=== PATIENT | male | born 1960 | race Hispanic/Latino ===

== ENCOUNTER 2020-02-22 | Emergency (ER) | payer OTHER ==
--- OUTSIDE RECORDS SUMMARY | 2020-02-22 16:45 | XMS REPORT | Continuity of Care Document ---
:1960 Author Organization [facility] Care Team Providers Name Role Phone [facility] Unavailable Un available Problems Problem Status Onset Classification Date Comments Sourc e Date Reported OTHER TEAR OF Active [facility] [place] [facility] [place] MENISCUS, CURRENT I OTH TEAR OF Active [facility] [place] [place] MENISCUS, CURRENT INJ UNILATERAL Active [facility] [place] OSTEOARTHRITIS , UNSPE Medications No Data Provided for This Section Allergies, Adverse Reactions, Alerts No Known Medication Allergies Immunizations No Data Provided for This Section Results No Data Provided for This Section Pathology Reports No Data Provided for This Section Diagnostic Reports Report Value Date Source Chest 2 views DX EXAM: 08/21/2015 [facility] n 2 view(s) of the chest. INDICATION: Preoperative exam. COMPARISON: Chest x-ray: None. FINDINGS: Support apparatus: None. Cardiac silhouette: Enlarged. Zahra: Unremarkable. Lobar consolidation: Negative. Pleural effusion: Negative. Pneumothorax: Negative. Other: Negative. Bones: Unremarkable. Other: None. IMPRESSION: 1. Enlarged cardiac silhouette without pulmonary edema. Consultation Notes No Data Provided for This Section Discharge Summaries No Data Provided for This Section History and Physicals No Data Provided for This Section Vital Signs No Data Provided for This Section Encounters Location Location Encounter Encounter Reason Attending ADM MS Stat Source Details Type Number For Provider Date Date Visit Outpatient [id number] XRAY VISIT 08/20 Act arjun [place] Procedures No Data Provided for This Section Assessment and Plan No Data Provided for This Section Plan of Care No Data Provided for This Section Social History No Data Provided for This Section Family History No Data Provided for This Section Advance Directives No Data Provided for This Section Functional Status No Data Provided for This Section
--- NOTE | 2020-02-22 17:18 | ER ---
Nurse's Notes [facility] Name: Servando Patel Age: 60 yrs Sex: Male : 1960 Arrival Date: 02/22/2020 Time: 16:47 Bed 5 Private MD: Diagnosis: First degree hemorrhoids Presentation: 02/21 16:59 Chief complaint: Patient states: "I had a colonoscopy on the and I have been jd3 having rectal pain since then, especially when having a bowel movement. I called the doctor that did it and they prescribed a medication called Proctosol and it helped at first, but it is not helping anymore.". Coronavirus screen: At this time, the client does not indicate any symptoms associated with coronavirus-19. Ebola Screen: Patient negative for fever greater than or equal to 101.5 degrees Fahrenheit, and additional compatible Ebola Virus Disease symptoms. Initial Sepsis Screen: Does the patient meet any 2 criteria? No. Patient's initial sepsis screen is negative. Does the patient have a suspected source of infection? No. Patient's initial sepsis screen is negative. Risk Assessment: Do you want to hurt yourself or someone else? Patient reports no desire to harm self or others. Onset of symptoms was February 12, 2020. 16:59 Method Of Arrival: Ambulatory j 16:59 Acuity: VERONIKA 3 jd3 Historical: - Allergies: 17:02 Codeine; jd3 - Home Meds: 17:02 None [Active]; jd3 - PMHx: 17:02 None; jd3 - PSHx: 17:02 Appendectomy; jaw; left knee; jd3 - Immunization history:: Adult Immunizations up to date. - Social history:: Smoking status: Patient denies any tobacco usage or history of. Patient/guardian denies using alcohol, street drugs, The patient lives with family. - Family history:: not pertinent. - Hospitalizations: : No recent hospitalization is reported. Screenin:10 Abuse screen: Denies threats or abuse. Denies injuries from another. Nutritional jl7 screening: No deficits noted. Tuberculosis screening: No symptoms or risk factors identified. Fall Risk None identified. Assessment: 17:10 General: Appears in no apparent distress. uncomfortable, Behavior is calm, cooperative, jl7 appropriate for age. Pain: Complains of pain in rectum Pain currently is 8 out of 10 on a pain scale. Neuro: Level of Consciousness is awake, alert, obeys commands, Oriented to person, place, time, situation. Cardiovascular: Patient's skin is warm and dry. Respiratory: Airway is patent Respiratory effort is even, unlabored, Respiratory pattern is regular, symmetrical. GI: Abdomen is round non-distended, obese, Stools are reported to be normal. Derm: Skin is pink, warm \\T\\ dry. Vital Signs: 17:02 BP 125 / 78; Pulse 70; Resp 17 S; Temp 97.0(TE); Pulse Ox 97% on R/A; Weight 108.86 kg j (R); Height 5 ft. 8 in. (172.72 cm) (R); Pain 8/10; 17:02 Body Mass Index 36.49 (108.86 kg, 172.72 cm) [facility] ED Course: 16:47 Patient arrived in ED. ds1 16:51 Kathrine Baez MD is Attending Physician. ma2 17:01 Triage completed. jd3 17:02 Arm band placed on. jd3 17:04 Devin Lima, LAURA is Primary Nurse. jl7 17:10 Patient has correct armband on for positive identification. Placed in gown. Bed in low jl7 position. Call light in reach. Side rails up X 1. Pulse ox on. NIBP on. 17:11 Served as a patient flow coordinator during rectal exam. jl7 17:16 Patient did not have IV access during this emergency room visit. jl7 Administered Medications: No medications were administered Outcome: 17:18 Discharge ordered by . ma2 17:24 Discharged to home ambulatory. jl7 17:24 Condition: stable 17:24 Discharge instructions given to patient, Instructed on discharge instructions, follow up and referral plans. medication usage, Demonstrated understanding of instructions, follow-up care, medications, Prescriptions given X 1. 17:24 Patient left the ED. jl7 Signatures: Polly Roach ds1 Devin Lima, Srinivas Huff RN, RN RN jKathrine Nascimento MD MD ma2
--- NOTE | 2020-02-22 17:18 | EDPHYS ---
Physician Documentation [facility] Name: Servando Patel Age: 60 yrs Sex: Male : 1960 Arrival Date: 02/22/2020 Time: 16:47 Bed 5 Private MD: ED Physician Kathrine Baez HPI: 02/21 17:15 This 60 yrs old Male presents to ER via Ambulatory with complaints of Rectal ma2 Pain. 17:15 The patient presents to the emergency department with pain in the rectal area. Onset: ma2 The symptoms/episode began/occurred gradually, 2 day(s) ago. Context: the patient has no known special context relating to the rectal area complaint(s). Associate signs and symptoms: Pertinent negatives: diarrhea, fever, lower GI bleeding, vomiting. The patient has not experienced similar symptoms in the past. rectal pain . Historical: - Allergies: 17:02 Codeine; jd3 - Home Meds: 17:02 None [Active]; jd3 - PMHx: 17:02 None; jd3 - PSHx: 17:02 Appendectomy; jaw; left knee; jd3 - Immunization history:: Adult Immunizations up to date. - Social history:: Smoking status: Patient denies any tobacco usage or history of. Patient/guardian denies using alcohol, street drugs, The patient lives with family. - Family history:: not pertinent. - Hospitalizations: : No recent hospitalization is reported. ROS: 17:15 Constitutional: Negative for fever, chills, and weight loss. ma2 17:15 All other systems are negative. Exam: 17:15 Constitutional: This is a well developed, well nourished patient who is awake, alert, ma2 and in no acute distress. Chest/axilla: Normal chest wall appearance and motion. Nontender with no deformity. No lesions are appreciated. Cardiovascular: Regular rate and rhythm with a normal S1 and S2. No gallops, murmurs, or rubs. Normal PMI, no JVD. No pulse deficits. Respiratory: Lungs have equal breath sounds bilaterally, clear to auscultation and percussion. No rales, rhonchi or wheezes noted. No increased work of breathing, no retractions or nasal flaring. Abdomen/GI: rectal exam shoes hemorroid at 3 pm location small 1x1 mm and tender, n obleeding, otherwise no rectal pathology seen,, Soft, non-tender, with normal bowel sounds. No distension or tympany. No guarding or rebound. No evidence of tenderness throughout. Male : Normal genitalia with no discharge or lesions. Skin: Warm, dry with normal turgor. Normal color with no rashes, no lesions, and no evidence of cellulitis. MS/ Extremity: Pulses equal, no cyanosis. Neurovascular intact. Full, normal range of motion. Neuro: Awake and alert, GCS 15, oriented to person, place, time, and situation. Cranial nerves II-XII grossly intact. Motor strength 5/5 in all extremities. Sensory grossly intact. Cerebellar exam normal. Normal gait. Vital Signs: 17:02 BP 125 / 78; Pulse 70; Resp 17 S; Temp 97.0(TE); Pulse Ox 97% on R/A; Weight 108.86 kg jd3 (R); Height 5 ft. 8 in. (172.72 cm) (R); Pain 8/10; 17:02 Body Mass Index 36.49 (108.86 kg, 172.72 cm) jd3 MDM: 16:51 Patient medically screened. ma2 17:15 Differential diagnosis: hemorrhoids, fissure, abscess, condyloma. Data reviewed: vital ma2 signs, nurses notes. Counseling: I had a detailed discussion with the patient and/or guardian regarding: the historical points, exam findings, and any diagnostic results supporting the discharge/admit diagnosis, the presence of at least one elevated blood pressure reading (>120/80) during this emergency department visit, the need for outpatient follow up. Response to treatment: There is no appreciated change of the patient's symptoms at this time. Administered Medications: No medications were administered Disposition: 02/22/20 17:18 Discharged to Home. Impression: First degree hemorrhoids. - Condition is Stable. - Discharge Instructions: Hemorrhoids, [id number]. - Prescriptions for Diclofenac Sodium 75 mg Oral Tablet Sustained Release - take 1 tablet by ORAL route 2 times per day; 30 tablet. - Medication Reconciliation Form, Thank You Letter, Antibiotic Education, Prescription Opioid Use form. - Follow up: Private Physician; When: Tomorrow; Reason: Continuance of care. Signatures: Devin Lima RN RN jl7 Srinivas Santiago RN RN jd3 Kathrine Baez MD MD ma2 Corrections: (The following items were deleted from the chart) 17:24 17:18 02/22/2020 17:18 Discharged to Home. Impression: First degree hemorrhoids. jl7 Condition is Stable. Forms are Medication Reconciliation Form, Thank You Letter, Antibiotic Education, Prescription Opioid Use. Follow up: Private Physician; When: Tomorrow; Reason: Continuance of care. ma2
== END 2020-02-22 17:24 | disposition home or self-care (01) ==
CPT/HCPCS: 99283

== ENCOUNTER 2020-03-04 01:52 | Emergency (ER) | payer OTHER ==
--- OUTSIDE RECORDS SUMMARY | 2020-03-04 01:54 | XMS REPORT | Continuity of Care Document ---
:1960 Author Organization [facility] [email or web address] Care Team Providers Name Role Phone [facility] [email or web address] Unavailable Un available Problems Problem Status Onset [...] Source Chest 2 views DX EXAM: 08/21/2015 [facility] n 2 view(s) of the chest. INDICATION: [...] Location Location Encounter Encounter Reason Attending ADM CA Stat Source Details Type Number For Provider Date Date Visit Outpatient [id number] XRAY VISIT 08/20 Act arjun [place] Procedures No Data Provided for This Section [...]
[2020-03-04] MEDS ORDERED: METHYLPREDNISOLONE 40 MG INJ ONE (02:48)
[2020-03-04] MEDS ORDERED: KETOROLAC 30 MG/ML INJ ONE (02:48)
[2020-03-04 03:01] LABS: Absolute Lymphocytes (CBC) 3.1 K/uL (0.7-4.9); Basophils % 1.2 % (0-1.3); Hematocrit 38.3 % (39.6-49.0); Lymphocytes % 33.3 % (15.3-44.8); MPV 8.4 fL (7.6-11.3)
[2020-03-04 03:13] LABS: ALT/SGPT 25 U/L (12-78); AST/SGOT 15 U/L (15-37); Alkaline Phosphatase 85 U/L (45-117); BUN Blood Urea Nitrogen 17 mg/dL (7-18); Bicarbonate 28 mmol/L (21-32); Bilirubin Direct < 0.1 mg/dL (0-0.2); Bilirubin Total 0.2 mg/dL (0.2-1.0); Glucose Level 128 mg/dL (74-106); Lipase 59 U/L (73-393); Protein, Total 7.5 g/dL (6.4-8.2); Sodium Level 142 mmol/L (136-145)
--- NOTE | 2020-03-04 04:01 | ER ---
Nurse's Notes [facility] Name: Servando Patel Age: 60 yrs Sex: Male : 1960 Arrival Date: 03/04/2020 Time: 01:54 Bed 14 Private MD: Diagnosis: Internal hemmorhoids Presentation: 03/04 02:11 Chief complaint: Patient states: I had a colonoscopy on Feb 11 and since then I have tl1 had rectal pain. It feels like something is protruding from his rectum. Coronavirus screen: Client denies travel out of the [place] in the last 14 days. At this time, the client does not indicate any symptoms associated with coronavirus-19. Ebola Screen: Patient negative for fever greater than or equal to 101.5 degrees Fahrenheit, and additional compatible Ebola Virus Disease symptoms Patient denies exposure to infectious person. Patient denies travel to an Ebola-affected area in the 21 days before illness onset. Initial Sepsis Screen: Does the patient meet any 2 criteria? No. Patient's initial sepsis screen is negative. Does the patient have a suspected source of infection? No. Patient's initial sepsis screen is negative. Risk Assessment: Do you want to hurt yourself or someone else? Patient reports no desire to harm self or others. Onset of symptoms was February 12, 2020. 02:11 Method Of Arrival: Ambulatory tl1 02:11 Acuity: VERONIKA 3 tl1 Historical: - Allergies: 02:25 Codeine; tl1 - Home Meds: 02:25 Hydrocortisone Acetate Rectal [Active]; tl1 - PSHx: 02:25 Colostomy; Appendectomy; jaw surgery; tl1 - Immunization history:: Adult Immunizations up to date. - Social history:: Smoking status: Patient denies any tobacco usage or history of. Screenin:02 Abuse screen: Denies threats or abuse. Nutritional screening: No deficits noted. jb4 Tuberculosis screening: No symptoms or risk factors identified. Fall Risk None identified. Assessment: 02:02 General: Appears in no apparent distress. uncomfortable, Behavior is calm, cooperative, jb4 appropriate for age. Pain: Complains of pain in Rectum Pain does not radiate. Pain currently is 6 out of 10 on a pain scale. Neuro: Level of Consciousness is awake, alert, obeys commands, Oriented to person, place, time, situation. Cardiovascular: Patient's skin is warm and dry. Respiratory: Airway is patent Respiratory effort is even, unlabored, Respiratory pattern is regular, symmetrical. GI: Reports rectal pain Patient currently denies abdominal pain, bloody stool, constipation, hemorrhoids, incontinence, nausea, rectal bleeding. : No signs and/or symptoms were reported regarding the genitourinary system. EENT: No signs and/or symptoms were reported regarding the EENT system. Derm: Skin is intact, Skin is pink, warm \T\ dry. Musculoskeletal: Circulation, motion, and sensation intact. Range of motion: intact in all extremities. 03:30 Reassessment: Patient appears in no apparent distress at this time. Patient and/or jb4 family updated on plan of care and expected duration. Pain level reassessed. Patient is alert, oriented x 3, equal unlabored respirations, skin warm/dry/pink. Patient denies pain at this time. Patient states feeling better. 04:18 Reassessment: Patient appears in no apparent distress at this time. Patient and/or jb4 family updated on plan of care and expected duration. Pain level reassessed. Patient is alert, oriented x 3, equal unlabored respirations, skin warm/dry/pink. Patient denies pain at this time. Patient states feeling better. Patient states symptoms have improved. Vital Signs: 02:11 BP 121 / 87; Pulse 71; Resp 16; Temp 98.1; Pulse Ox 97% ; Weight 108.86 kg; Height 5 tl1 ft. 9 in. (175.26 cm); Pain 0/10; 03:00 BP 110 / 68; Pulse 63; Resp 16; Pulse Ox 96% on R/A; jb4 03:30 BP 117 / 91; Pulse 70; Resp 16; Pulse Ox 97% on R/A; Pain 0/10; jb4 04:00 BP 138 / 82; Pulse 57; Resp 16; Pulse Ox 96% on R/A; jb4 02:11 Body Mass Index 35.44 (108.86 kg, 175.26 cm) tl1 ED Course: 01:54 Patient arrived in ED. ag3 02:02 Patient has correct armband on for positive identification. Placed in gown. Bed in low jb4 position. Call light in reach. Side rails up X 1. Pulse ox on. NIBP on. 02:22 Triage completed. tl1 02:24 David Gaitan MD is Attending Physician. tw4 02:25 Arm band placed on right wrist. tl1 02:29 Jonathan Goodman, RN is Primary Nurse. jb4 02:45 Initial lab(s) drawn, by de, sent to lab. Inserted saline lock: 18 gauge in right jb4 antecubital area, using aseptic technique. Blood collected. 03:24 CT Abd/Pelvis - IV Contrast Only In Process Unspecified. EDMS 04:00 No provider procedures requiring assistance completed. IV discontinued, intact, jb4 bleeding controlled, No redness/swelling at site. Pressure dressing applied. Administered Medications: 02:45 Drug: TORadol 30 mg Route: IVP; Site: right antecubital; jb4 03:30 Follow up: Response: No adverse reaction; Pain is decreased jb4 02:45 Drug: SOLU-Medrol 80 mg Route: IVP; Site: right antecubital; jb4 03:30 Follow up: Response: No adverse reaction jb4 Outcome: 04:01 Discharge ordered by . tw4 04:20 Discharged to home ambulatory. jb4 04:20 Condition: stable 04:20 Discharge instructions given to patient, Instructed on discharge instructions, follow up and referral plans. medication usage, Demonstrated understanding of instructions, follow-up care, medications, Prescriptions given X 4. 04:21 Patient left the ED. jb4 Signatures: Dispatcher [employer] EDSC Maribell Dozier RN RN tl1 Jonathan Goodman, RN RN jb4 David Gaitan MD MD tw4 Veronica Seymour 3 Corrections: (The following items were deleted from the chart) 03:33 03:00 BP 110 / 68; Pulse 63bpm; Resp 16bpm; Pulse Ox 96% RA; Pain 0/10; jb4 jb4
--- NOTE | 2020-03-04 04:02 | EDPHYS ---
Physician Documentation [facility] Name: Servando Patel Age: 60 yrs Sex: Male : 1960 Arrival Date: 03/04/2020 Time: 01:54 Bed 14 Private MD: RILEY Physician David Gaitan HPI: 03/04 03:13 This 60 yrs old Male presents to ER via Ambulatory with complaints of Rectal tw4 Pain. 03:13 The patient presents to the emergency department with pain in the rectal area. Context: tw4 the patient has no known special context relating to the rectal area complaint(s). Modifying factors: The symptoms are alleviated by nothing, The symptoms are aggravated by bowel movement, movement, sitting position. Associate signs and symptoms: 1 month(s) ago, and became worse today, The patient has no apparent associated signs or symptoms. Historical: - Allergies: 02:25 Codeine; tl1 - Home Meds: 02:25 Hydrocortisone Acetate Rectal [Active]; tl1 - PSHx: 02:25 Colostomy; Appendectomy; jaw surgery; tl1 - Immunization history:: Adult Immunizations up to date. - Social history:: Smoking status: Patient denies any tobacco usage or history of. ROS: 03:13 Constitutional: Negative for fever, chills, and weight loss, Eyes: Negative for injury, tw4 pain, redness, and discharge, Cardiovascular: Negative for chest pain, palpitations, and edema, Respiratory: Negative for shortness of breath, cough, wheezing, and pleuritic chest pain, Back: Negative for injury and pain, MS/Extremity: Negative for injury and deformity, Skin: Negative for injury, rash, and discoloration, Neuro: Negative for headache, weakness, numbness, tingling, and seizure. 03:13 Abdomen/GI: Positive for rectal pain, Negative for abdominal pain, nausea and vomiting, nausea, vomiting, and diarrhea, nausea, vomiting, diarrhea, abdominal cramps, abdominal distension, dysphagia. Exam: 03:13 Constitutional: This is a well developed, well nourished patient who is awake, alert, tw4 and in no acute distress. Head/Face: Normocephalic, atraumatic. Chest/axilla: Normal chest wall appearance and motion. Nontender with no deformity. No lesions are appreciated. Cardiovascular: Regular rate and rhythm with a normal S1 and S2. No gallops, murmurs, or rubs. Normal PMI, no JVD. No pulse deficits. Respiratory: Lungs have equal breath sounds bilaterally, clear to auscultation and percussion. No rales, rhonchi or wheezes noted. No increased work of breathing, no retractions or nasal flaring. Back: No spinal tenderness. No costovertebral tenderness. Full range of motion. Skin: Warm, dry with normal turgor. Normal color with no rashes, no lesions, and no evidence of cellulitis. MS/ Extremity: Pulses equal, no cyanosis. Neurovascular intact. Full, normal range of motion. Neuro: Awake and alert, GCS 15, oriented to person, place, time, and situation. Cranial nerves II-XII grossly intact. Motor strength 5/5 in all extremities. Sensory grossly intact. Cerebellar exam normal. Normal gait. 03:13 Abdomen/GI: Inspection: abdomen appears normal, Bowel sounds: normal, Palpation: abdomen is soft and non-tender, Rectal exam: swelling, that is mild, tenderness, that is mild. Vital Signs: 02:11 BP 121 / 87; Pulse 71; Resp 16; Temp 98.1; Pulse Ox 97% ; Weight 108.86 kg; Height 5 tl1 ft. 9 in. (175.26 cm); Pain 0/10; 03:00 BP 110 / 68; Pulse 63; Resp 16; Pulse Ox 96% on R/A; jb4 03:30 BP 117 / 91; Pulse 70; Resp 16; Pulse Ox 97% on R/A; Pain 0/10; jb4 04:00 BP 138 / 82; Pulse 57; Resp 16; Pulse Ox 96% on R/A; jb4 02:11 Body Mass Index 35.44 (108.86 kg, 175.26 cm) tl1 MDM: 02:24 Patient medically screened. tw4 05:35 Differential diagnosis: hemorrhoids. Data reviewed: vital signs, nurses notes. Data tw4 interpreted: Pulse oximetry: Interpretation: normal. Counseling: I had a detailed discussion with the patient and/or guardian regarding: the historical points, exam findings, and any diagnostic results supporting the discharge/admit diagnosis. Special discussion: I discussed with the patient/guardian in detail that at this point there is no indication for admission to the hospital. It is understood, however, that if the symptoms persist or worsen the patient needs to return immediately for re-evaluation. 03/04 02:24 Order name: Basic Metabolic Panel; Complete Time: 03:41 tw4 03/04 03:42 Interpretation: Normal except: GLUC 128; GFR 70; CL 110. tw4 03/04 02:24 Order name: CBC with Diff; Complete Time: 03:41 tw4 03/04 03:43 Interpretation: Normal except: RBC 4.00; HGB 13.0; HCT 38.3; EOSINOPHIL % 5.9. tw4 03/04 02:24 Order name: Hepatic Function; Complete Time: 03:41 tw4 03/04 03:42 Interpretation: Normal except: ALB 3.0; A/G 0.7; GLOB 4.5. tw4 03/04 02:24 Order name: Lipase; Complete Time: 03:41 tw4 03/04 03:42 Interpretation: Normal except: LIP 59. tw4 03/04 02:24 Order name: CT Abd/Pelvis - IV Contrast Only tw4 03/04 02:24 Order name: IV Saline Lock; Complete Time: 02:50 tw4 03/04 02:24 Order name: Labs collected and sent; Complete Time: 02:50 tw4 Administered Medications: 02:45 Drug: TORadol 30 mg Route: IVP; Site: right antecubital; jb4 03:30 Follow up: Response: No adverse reaction; Pain is decreased jb4 02:45 Drug: SOLU-Medrol 80 mg Route: IVP; Site: right antecubital; jb4 03:30 Follow up: Response: No adverse reaction [facility] Disposition: 03/04/20 04:01 Discharged to Home. Impression: Internal hemmorhoids. - Condition is Stable. - Discharge Instructions: Hemorrhoids. - Prescriptions for Anusol- HC 2.5 % Rectal Cream - Apply to affected area 1 application by TOPICAL route every 8 hours As needed; 30 gram. Colace 100 mg Oral Tablet - take 1 tablet by ORAL route every 12 hours; 14 tablet. Anusol- HC 25 mg Rectal Suppository - insert 1 suppository by RECTAL route every 12 hours As needed; 20 suppository. Medrol (Augie) 4 mg Oral Tablets, Dose Pack - take 1 tablet by ORAL route as directed - follow package instructions; 1 packet. - Medication Reconciliation Form, Thank You Letter, Antibiotic Education, Prescription Opioid Use form. - Follow up: Private Physician; When: Upon discharge from the Emergency Department; Reason: Recheck today's complaints, Continuance of care, Re-evaluation by your physician. - Problem is new. - Symptoms have improved. Signatures: Dispatcher [employer] EDMS Maribell Dozier RN RN tl1 Jonathan Goodman RN RN jb4 David Gaitan MD MD tw4 Corrections: (The following items were deleted from the chart) 03:43 03:42 Normal except: RBC 4.00; HGB 13.0; HCT 38.3. tw4 tw4 04:21 04:01 03/04/2020 04:01 Discharged to Home. Impression: Internal hemmorhoids. Condition jb4 is Stable. Forms are Medication Reconciliation Form, Thank You Letter, Antibiotic Education, Prescription Opioid Use. Follow up: Private Physician; When: Upon discharge from the Emergency Department; Reason: Recheck today's complaints, Continuance of care, Re-evaluation by your physician. Problem is new. Symptoms have improved. tw4
--- NOTE | 2020-03-04 09:55 | RAD REPORT ---
EXAM DESCRIPTION: RCT ABDOMEN PELVIS WITH IV CONTRAST CLINICAL HISTORY: Rectal pain TECHNIQUE: Contiguous axial images obtained through the abdomen and pelvis following the uneventful administration of IV contrast. Coronal and sagittal reformatted images were provided. This exam was performed according to our departmental dose-optimization program, which includes autom ated exposure control, adjustment of the mA and/or kV according to patient size and/or use of iterati ve reconstruction technique. COMPARISON: None available for comparison. FINDINGS: Lung bases: Clear Liver: The liver is enlarged and diffusely low in density compatible with steatosis. Gallbladder and biliary system: Prior cholecystectomy. Pancreas: Mild fatty replacement of the pancreatic parenchyma. Spleen: Unremarkable Adrenals: Unremarkable Kidneys: Normal renal cortical enhancement. No calculi. No hydronephrosis. Bowel: Moderate stool within the proximal to mid large bowel. No obstruction. No appreciable mucosal thickening. Appendix: Prior appendectomy. Urinary bladder: Unremarkable Reproductive: Unremarkable as visualized Lymph nodes: No pathologically enlarged lymph nodes. Peritoneum: No focal fluid collection. No free air. Vessels: Mild atherosclerotic disease. No abdominal aortic aneurysm. Abdominal wall: Tiny fat-containing umbilical hernia. Bones: Multilevel spondylosis. No acute fracture. IMPRESSION: 1. No acute abnormality identified within the abdomen and pelvis. 2. Other findings as above. Electronically signed by: Yonny Paredes MD 03/04/2020 3:45 AM [facility] [employer] Due to temporary technical issues with the PACS/Fluency reporting system, reports are being signed by the in house radiologist without review as a courtesy to ensure prompt reporting. The interpreting r adiologist is fully responsible for the content of the report.
[2020-03-07 17:39] VITALS: TEMP 98.1
[2020-03-07 17:43] VITALS: BP 138/82; O2SAT 96
== END 2020-03-04 04:21 | disposition home or self-care (01) ==
LOC: ER 01:52
DX: K64.8 Other hemorrhoids (principal); Z88.5 Allergy status to narcotic agent
CPT/HCPCS: 85025; 80048; 36415; 82565; 80076; 83690; 74177; 96375; 96374; 99284; Q9967; J2920